=== PATIENT | male | born 1965 | race Caucasian/White ===

== ENCOUNTER 2017-07-03 21:09 | Emergency (ER) | payer OTHER ==
[~2017-07-03] VITALS: Ht 185.4 cm; Wt 82.0 kg
[~2017-07-03 21:09] MED LIST: CELE40TA PO; LIPI40TA PO; WELL150T PO; XANA0.5T PO
[2017-07-03 21:17] VITALS: BP 112/69; PULSE 117; RESP 26; TEMP 99.3; O2SAT 96
[2017-07-03 21:24] VITALS: BP 112/69; PULSE 130; RESP 26; TEMP 99.3; O2SAT 94
[2017-07-03] MEDS ORDERED: HALOPERIDOL LACTATE 5 MG/ML AMP ONE (21:31)
[2017-07-03] MEDS ORDERED: LORazepam 2 MG/ML VIAL ONE (21:31)
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
[2017-07-04] MEDS ORDERED: HALOPERIDOL LACTATE 5 MG/ML AMP IM ONE
[2017-07-04] MEDS ORDERED: LORazepam 2 MG/ML VIAL IM ONE
--- NOTE | 2017-07-04 04:44 | PD ---
Physical Exam Date Seen by Provider: Jul 04, 2017 Time Seen by Provider: 04:42 Narrative For full history and physical examination please see previous provider's note. Patient was brought to the emergency Department under act. Data Data Last Documented VS Vital Signs Date Time Temp Pulse Resp B/P (MAP) Pulse Ox O2 Delivery O2 Flow Rate FiO2 07/03/17 21:24 123 26 94 Room Air 07/03/17 21:24 99.3 112/69 (83) Orders Orders Haloperidol Inj (Haldol Inj) (07/03/17 21:31) Lorazepam Inj (Ativan Inj) (07/03/17 21:31) Diet Regular Basic (07/04/17 Breakfast) Haloperidol Inj (Haldol Inj) (07/04/17 00:00) Lorazepam Inj (Ativan Inj) (07/04/17 00:00) Alcohol (Ethanol) (07/04/17 01:26) Labs Laboratory Tests Test 07/04/17 01:28 Ethyl Alcohol Level 162 MG/DL [facility] Medical Record Reviewed: Yes Supervised Visit with IVIS: No Interpretation(s) Vital Signs Date Time Temp Pulse Resp B/P (MAP) Pulse Ox O2 Delivery O2 Flow Rate FiO2 07/03/17 21:24 123 26 94 Room Air 07/03/17 21:24 99.3 130 26 112/69 (83) 94 Room Air 07/03/17 21:17 99.3 117 26 112/69 (83) 96 Laboratory Tests Test 07/04/17 01:28 Ethyl Alcohol Level 162 MG/DL Narrative Course At approximately 1:30 AM patient's blood alcohol was assessed at 162, he continued to sleep for another 3 hours and 0430 wanted to go home. Patient demonstrated safe ambulation in the emergency department, he was alert, oriented. He was given discharge instructions were written by previous provider as well as a cab voucher to return home. Diagnosis Primary Impression: Alcohol intoxication Qualified Codes: F10.920 - Alcohol use, unspecified with intoxication, uncomplicated Patient Instructions: General Instructions Additional Instruction: Follow up with Sonny Billy in regards to psychiatric or substance related issues at: [address] [place], [place] [id number] Scripts Unable to Obtain Active Prescriptions or Reported Meds Disposition: DISCHARGE HOME Condition: Stable Mimi Conner Jul 04, 2017 04:44
[2017-07-04 04:46] VITALS: BP 148/56; PULSE 72; RESP 18; O2SAT 98
== END 2017-07-04 05:31 | disposition home or self-care (01) ==
LOC: NEPD 21:09
DX: F10.129 Alcohol abuse with intoxication, unspecified (principal); F41.9 Anxiety disorder, unspecified; F32.9 Major depressive disorder, single episode, unspecified; E78.00 Pure hypercholesterolemia, unspecified; Z72.0 Tobacco use
CPT/HCPCS: 80307; 96372; 99284; J1630; J2060